=== PATIENT | female | born 2000 | race Asian ===

== ENCOUNTER 2023-04-07 14:51 | Outpatient (CLI) | payer OTHER ==
[~2023-04-07 14:51] MED LIST: Iopamidol 300 61% 100 ML VIAL FS ONE
== END 2023-04-07 14:52 | disposition home or self-care (01) ==
LOC: CSHCT 14:51
PROVIDERS: ATTEND Urology
DX: N13.39 Other hydronephrosis (principal); Z87.448 Personal history of other diseases of urinary system; R10.9 Unspecified abdominal pain; N39.8 Other specified disorders of urinary system
CPT/HCPCS: 74178